=== PATIENT | female | born 1985 | race Caucasian/White ===

== ENCOUNTER 2020-07-24 13:19 | Inpatient (IN) ==
[2020-07-24 15:55] LABS: Basophils # 0.1 K/mcL (0.0-0.2); Basophils % 0.6 %; Eosinophils # 0.1 K/mcL (0.0-0.6); Eosinophils % 1.6 %; Hematocrit 44.5 % (35.3-44.9); Hemoglobin 14.9 g/dL (11.5-15.4); Immature Granulocytes % 0.6 % (0-4); Lymphocytes # 1.9 K/mcL (0.6-4.6); Lymphocytes % 22.7 %; Mean Corpuscular HGB Conc 33.5 g/dL (31.6-35.5); Mean Corpuscular Volume 86.6 fL (83.0-100.0); Mean Platelet Volume 9.4 fL (9.4-12.4); Monocytes # 0.6 K/mcL (0.0-1.3); Monocytes % 7.6 %; Neutrophils # 5.5 K/mcL (1.6-8.9); Platelet Count 302 K/mcL (140-400); Red Blood Count 5.14 M/mcL (3.82-4.97); Red Cell Distribution Width 11.9 % (11.5-14.5); Segmented Neutrophils % 66.9 %; White Blood Count 8.3 K/mcL (4.3-11.1)
[2020-07-24 15:59] LABS: Bilirubin,Urine Negative (Negative); Blood,Urine Large (Negative); Clarity,Urine Clear (Clear); Color,Urine Yellow (Yellow); Glucose,Urine (UA) Normal (Normal); Ketones,Urine Negative (Negative); Leukocyte Esterase,Urine Trace (Negative); Nitrite,Urine Negative (Negative); PH,Urine 6.5 pH Units (5.0-8.0); Protein,Urine 50 mg/dL (Neg-Trace); Specific Gravity,Urine 1.024 (1.010-1.025)
[2020-07-24 16:02] LABS: Amphetamine Screen,Urine Negative ng/mL (Cutoff=1000); Barbiturate Screen,Urine Negative ng/mL (Cutoff=200); Benzodiazepines Screen,Urine Positive ng/mL (Cutoff=200); Cannabinoid Screen,Urine Positive ng/mL (Cutoff = 50); Cocaine Screen,Urine Negative ng/mL (Cutoff= 300); Opiate Screen,Urine Negative ng/mL (Cutoff=300); Phencyclidine Screen,Urine Negative ng/mL (Cutoff=25)
[2020-07-24 16:08] LABS: Acetaminophen < 10 mcg/mL (10-20); BUN/Creatinine Ratio 15 (6-26); Blood Urea Nitrogen 10 mg/dL (6-20); Calcium 9.4 mg/dL (8.6-10.3); Carbon Dioxide 24 mEq/L (23-29); Chloride 108 mEq/L (98-107); Chol/HDL Ratio 2.9 (0-4.9); Cholesterol 138 mg/dL (< 200); Ethanol < 10 mg/dL (Less than 10); Glucose 90 mg/dL (70-105); HDL Cholesterol 47 mg/dL (40-59); LDL Cholesterol,Calculated 78 mg/dL (< 100); Osmolality,Calculated 287 (280-300); Potassium 3.6 mEq/L (3.5-5.1); Salicylate < 2.5 mg/dL (15.0-30.0); Sodium 139 mEq/L (136-145); Triglycerides 66 mg/dL (< 150); eGFR For African Americans > 60 (> 60); eGFR For Non-African Americans > 60 (> 60)
[2020-07-24 16:40] LABS: Estimated Average Glucose 108 mg/dl; Hemoglobin A1C 5.4 %
[2020-07-24] MEDS ORDERED: Haloperidol Lactate 5 MG/ML VIAL IM PRN (21:03)
[2020-07-24] MEDS ORDERED: haloperidoL 5 MG TABLET PO PRN (21:03)
[2020-07-24] MEDS ORDERED: *HR* LORazepam 2 MG/ML VIAL IM PRN (21:03)
[2020-07-24] MEDS ORDERED: Acetaminophen 325 MG TABLET PO PRN (21:03)
[2020-07-24] MEDS ORDERED: Mag Hydrox/Al Hydrox/Simeth 30 ML UDC PO PRN (21:03)
[2020-07-24] MEDS ORDERED: *HR* LORazepam 1 MG TABLET PO PRN (21:03)
[2020-07-24] MEDS ORDERED: MOM Conc 10 ML UD.LIQ PO PRN (21:03)
[2020-07-25] MEDS: Nicotine 21 MG PATCH.TD24 TD SCH (09:12)
[2020-07-25] MEDS: ARIPiprazole 5 MG TABLET PO SCH ×2 (10:30→21:16)
[2020-07-26] MEDS ORDERED: ARIPiprazole 10 MG TABLET PO SCH ×2 (09:00→21:00)
[2020-07-26] MEDS: Nicotine 21 MG PATCH.TD24 TD SCH (09:27)
[2020-07-26] MEDS ORDERED: ARIPiprazole 5 MG TABLET PO STA (11:07)
[2020-07-27] MEDS ORDERED: ARIPiprazole 10 MG TABLET PO SCH (09:00)
[2020-07-27] MEDS: Nicotine 21 MG PATCH.TD24 TD SCH (09:14)
[2020-07-27] MEDS: ARIPiprazole 10 MG TABLET PO SCH (21:15)
[2020-07-27] MEDS: traZODone 50 MG TABLET PO PRN (21:16)
[2020-07-27] MEDS: hydrOXYzine pamoate 25 MG CAPSULE PO PRN (21:17)
[2020-07-28] MEDS ORDERED: ARIPiprazole 400 MG SUSER.SYR IM ONE (09:00)
[2020-07-28] MEDS: Nicotine 21 MG PATCH.TD24 TD SCH (09:39)
[2020-07-28] MEDS: hydrOXYzine pamoate 25 MG CAPSULE PO PRN (21:27)
[2020-07-28] MEDS: ARIPiprazole 10 MG TABLET PO SCH (21:27)
[2020-07-28] MEDS: traZODone 50 MG TABLET PO PRN (21:27)
[2020-07-29] MEDS: Nicotine 21 MG PATCH.TD24 TD SCH (08:29)
[2020-07-29] MEDS: hydrOXYzine pamoate 25 MG CAPSULE PO PRN (20:42)
[2020-07-29] MEDS: ARIPiprazole 10 MG TABLET PO SCH (20:42)
[2020-07-30] MEDS: Nicotine 21 MG PATCH.TD24 TD SCH (10:11)
[2020-07-30] MEDS: ARIPiprazole 10 MG TABLET PO SCH (21:12)
[2020-07-31] MEDS: Nicotine 21 MG PATCH.TD24 TD SCH (11:27)
[2020-07-31] MEDS ORDERED: ARIPiprazole 400 MG SUSER.SYR IM SCH (15:00)
[2020-07-31] MEDS: ARIPiprazole 10 MG TABLET PO SCH (21:10)
[2020-07-31] MEDS: ARIPiprazole 5 MG TABLET PO SCH (21:10)
[2020-08-01] MEDS: Nicotine 21 MG PATCH.TD24 TD SCH (08:56)
[2020-08-01] MEDS: ARIPiprazole 10 MG TABLET PO SCH (20:52)
[2020-08-01] MEDS: ARIPiprazole 5 MG TABLET PO SCH (20:52)
[2020-08-02] MEDS: Nicotine 21 MG PATCH.TD24 TD SCH (08:51)
[2020-08-02 09:45] VITALS: BP 110/65
== END 2020-08-02 12:35 | disposition home or self-care (01) | DRG 750 ==
LOC: EMEROOARM 13:19 → 1ANU 20:31
PROVIDERS: ADMIT Psychiatry & Neurology Psychiatry; ATTEND Psychiatry & Neurology Psychiatry

== ENCOUNTER 2020-08-14 17:05 | Inpatient (IN) ==
[2020-08-14 17:48] LABS: Bacteria,Urine Few per hpf (None-Few); Bilirubin,Urine Negative (Negative); Blood,Urine Negative (Negative); Clarity,Urine Turbid (Clear); Color,Urine Yellow (Yellow); Glucose,Urine (UA) Normal (Normal); Ketones,Urine Trace mg/dL (Negative); Leukocyte Esterase,Urine Moderate (Negative); Mucus,Urine Many per lpf (None-Few); Nitrite,Urine Negative (Negative); PH,Urine 6.5 pH Units (5.0-8.0); Protein,Urine 70 mg/dL (Neg-Trace); Specific Gravity,Urine > 1.030 (1.010-1.025); Squamous Epithelial Cell,Urine Many per hpf (None-Few); WBC,Urine 15-30 per hpf (0-3)
[2020-08-14 18:10] LABS: Amphetamine Screen,Urine Negative ng/mL (Cutoff=1000); Barbiturate Screen,Urine Negative ng/mL (Cutoff=200); Benzodiazepines Screen,Urine Negative ng/mL (Cutoff=200); Cannabinoid Screen,Urine Positive ng/mL (Cutoff = 50); Cocaine Screen,Urine Negative ng/mL (Cutoff= 300); Opiate Screen,Urine Negative ng/mL (Cutoff=300); Phencyclidine Screen,Urine Negative ng/mL (Cutoff=25)
[2020-08-14 18:15] LABS: Basophils # 0.1 K/mcL (0.0-0.2); Basophils % 0.7 %; Eosinophils # 0.1 K/mcL (0.0-0.6); Eosinophils % 0.9 %; Hematocrit 46.2 % (35.3-44.9); Immature Granulocytes % 0.5 % (0-4); Lymphocytes % 18.8 %; Mean Corpuscular HGB Conc 34.6 g/dL (31.6-35.5); Mean Corpuscular Hemoglobin 29.7 pg (28.0-33.3); Mean Corpuscular Volume 85.9 fL (83.0-100.0); Mean Platelet Volume 9.7 fL (9.4-12.4); Monocytes # 0.8 K/mcL (0.0-1.3); Monocytes % 8.1 %; Neutrophils # 7.4 K/mcL (1.6-8.9); Platelet Count 343 K/mcL (140-400); Red Blood Count 5.38 M/mcL (3.82-4.97); Red Cell Distribution Width 12.4 % (11.5-14.5); White Blood Count 10.4 K/mcL (4.3-11.1)
[2020-08-14 18:29] LABS: Estimated Average Glucose 111 mg/dl; Hemoglobin A1C 5.5 %
[2020-08-14 18:32] LABS: Acetaminophen < 10 mcg/mL (10-20); BUN/Creatinine Ratio 11 (6-26); Blood Urea Nitrogen 7 mg/dL (6-20); Calcium 9.4 mg/dL (8.6-10.3); Carbon Dioxide 21 mEq/L (23-29); Chloride 107 mEq/L (98-107); Chol/HDL Ratio 3.1 (0-4.9); Cholesterol 170 mg/dL (< 200); Ethanol < 10 mg/dL (Less than 10); Glucose 114 mg/dL (70-105); HDL Cholesterol 54 mg/dL (40-59); LDL Cholesterol,Calculated 102 mg/dL (< 100); Osmolality,Calculated 287 (280-300); Potassium 3.5 mEq/L (3.5-5.1); Salicylate < 2.5 mg/dL (15.0-30.0); Sodium 139 mEq/L (136-145); Triglycerides 72 mg/dL (< 150); eGFR For African Americans > 60 (> 60); eGFR For Non-African Americans > 60 (> 60)
[2020-08-14] MEDS ORDERED: cephALEXin 500 MG CAPSULE PO STA (18:36)
[2020-08-14 21:56] LABS: Adenovirus Not Detected (Not Detect); Bordetella Pertussis Not Detected (Not Detect); Chlamydophila pneumoniae Not Detected (Not Detect); Coronavirus 229E Not Detected (Not Detect); Coronavirus HKU1 Not Detected (Not Detect); Coronavirus NL63 Not Detected (Not Detect); Coronavirus OC43 Not Detected (Not Detect); Human Metapneumovirus Not Detected (Not Detect); Human Rhinovirus/Enterovirus Not Detected (Not Detect); Influenza A Subtype 2009 H1 Not Detected (Not Detect); Influenza B Not Detected (Not Detect); Mycoplasma pneumoniae Not Detected (Not Detect); Parainfluenza Virus 1 Not Detected (Not Detect); Parainfluenza Virus 2 Not Detected (Not Detect); Parainfluenza Virus 3 Not Detected (Not Detect); Parainfluenza Virus 4 Not Detected (Not Detect); Respiratory Syncytial Virus Not Detected (Not Detect); SARS-CoV-2 Not Detected (Not Detect)
[2020-08-14] MEDS ORDERED: haloperidoL 5 MG TABLET PO PRN (22:01)
[2020-08-14] MEDS ORDERED: *HR* LORazepam 2 MG/ML VIAL IM PRN (22:01)
[2020-08-14] MEDS ORDERED: Haloperidol Lactate 5 MG/ML VIAL IM PRN (22:01)
[2020-08-14] MEDS ORDERED: Mag Hydrox/Al Hydrox/Simeth 30 ML UDC PO PRN (22:01)
[2020-08-14] MEDS ORDERED: MOM Conc 10 ML UD.LIQ PO PRN (22:01)
[2020-08-14] MEDS ORDERED: *HR* LORazepam 1 MG TABLET PO PRN (22:01)
[2020-08-14] MEDS: ARIPiprazole 10 MG TABLET PO SCH (23:20)
[2020-08-14] MEDS: QUEtiapine Fumarate 100 MG TABLET PO PRN (23:20)
[2020-08-15] MEDS: Nicotine 21 MG PATCH.TD24 TD SCH (10:37)
[2020-08-15] MEDS: cephALEXin 500 MG CAPSULE PO SCH ×2 (11:17→20:47)
[2020-08-15] MEDS: hydrOXYzine pamoate 25 MG CAPSULE PO PRN (19:29)
[2020-08-15] MEDS: QUEtiapine Fumarate 100 MG TABLET PO PRN (20:47)
[2020-08-15] MEDS: ARIPiprazole 10 MG TABLET PO SCH (20:47)
[2020-08-16] MEDS: cephALEXin 500 MG CAPSULE PO SCH ×2 (09:41→21:48)
[2020-08-16] MEDS: Nicotine 21 MG PATCH.TD24 TD SCH (09:43)
[2020-08-16] MEDS: Ibuprofen 400 MG TABLET PO PRN (13:43)
[2020-08-16] MEDS: ARIPiprazole 400 MG SUSER.SYR IM SCH (15:20)
[2020-08-16] MEDS: QUEtiapine Fumarate 100 MG TABLET PO PRN (21:48)
[2020-08-16] MEDS: ARIPiprazole 10 MG TABLET PO SCH (21:48)
[2020-08-17] MEDS: cephALEXin 500 MG CAPSULE PO SCH ×2 (10:09→20:13)
[2020-08-17] MEDS: Nicotine 21 MG PATCH.TD24 TD SCH (10:09)
[2020-08-17] MEDS: QUEtiapine Fumarate 100 MG TABLET PO PRN (20:13)
[2020-08-17] MEDS: hydrOXYzine pamoate 25 MG CAPSULE PO PRN (20:13)
[2020-08-17] MEDS: ARIPiprazole 10 MG TABLET PO SCH (20:13)
[2020-08-18] MEDS ORDERED: ARIPiprazole 400 MG SUSER.SYR IM SCH (09:00)
[2020-08-18] MEDS: Nicotine 21 MG PATCH.TD24 TD SCH (09:52)
[2020-08-18] MEDS: cephALEXin 500 MG CAPSULE PO SCH ×2 (09:52→20:13)
[2020-08-18] MEDS: ARIPiprazole 10 MG TABLET PO SCH (20:13)
[2020-08-19] MEDS: cephALEXin 500 MG CAPSULE PO SCH ×2 (09:37→21:02)
[2020-08-19] MEDS: Nicotine 21 MG PATCH.TD24 TD SCH (09:38)
[2020-08-19] MEDS: ARIPiprazole 10 MG TABLET PO SCH (17:39)
[2020-08-19] MEDS: QUEtiapine Fumarate 100 MG TABLET PO SCH (21:02)
[2020-08-20] MEDS: Nicotine 21 MG PATCH.TD24 TD SCH (09:06)
[2020-08-20 11:12] LABS: Bilirubin,Urine Negative (Negative); Blood,Urine Small (Negative); Clarity,Urine Turbid (Clear); Color,Urine Yellow (Yellow); Glucose,Urine (UA) Normal (Normal); Ketones,Urine 60 mg/dL (Negative); Leukocyte Esterase,Urine Large (Negative); Mucus,Urine Many per lpf (None-Few); Nitrite,Urine Negative (Negative); Protein,Urine 100 mg/dL (Neg-Trace); RBC,Urine 30-50 per hpf (0-3); Specific Gravity,Urine > 1.030 (1.010-1.025); Squamous Epithelial Cell,Urine Many per hpf (None-Few); WBC,Urine 30-50 per hpf (0-3)
[2020-08-20] MEDS: ARIPiprazole 10 MG TABLET PO SCH (17:58)
[2020-08-20] MEDS: QUEtiapine Fumarate 100 MG TABLET PO SCH (21:20)
[2020-08-20] MEDS: hydrOXYzine pamoate 25 MG CAPSULE PO PRN (21:20)
[2020-08-21 07:07] LABS: Basophils # 0.1 K/mcL (0.0-0.2); Basophils % 0.7 %; Eosinophils # 0.2 K/mcL (0.0-0.6); Eosinophils % 3.5 %; Hematocrit 45.8 % (35.3-44.9); Hemoglobin 15.5 g/dL (11.5-15.4); Immature Granulocytes % 0.6 % (0-4); Lymphocytes % 29.6 %; Mean Corpuscular HGB Conc 33.8 g/dL (31.6-35.5); Mean Corpuscular Volume 85.8 fL (83.0-100.0); Mean Platelet Volume 9.5 fL (9.4-12.4); Monocytes # 0.6 K/mcL (0.0-1.3); Monocytes % 8.5 %; Neutrophils # 3.9 K/mcL (1.6-8.9); Platelet Count 292 K/mcL (140-400); Red Blood Count 5.34 M/mcL (3.82-4.97); Red Cell Distribution Width 11.8 % (11.5-14.5); Segmented Neutrophils % 57.1 %; White Blood Count 6.8 K/mcL (4.3-11.1)
[2020-08-21 07:29] LABS: Alanine Aminotransferase 26 Units/L (7-52); Albumin/Globulin Ratio 1.1 (1.1-2.2); Alkaline Phosphatase 99 Units/L (34-104); Aspartate Amino Transferase 24 Units/L (13-39); BUN/Creatinine Ratio 16 (6-26); Bilirubin,Total 0.8 mg/dL (0.3-1.0); Blood Urea Nitrogen 11 mg/dL (6-20); Calcium 9.3 mg/dL (8.6-10.3); Carbon Dioxide 23 mEq/L (23-29); Chloride 105 mEq/L (98-107); Globulin 3.5 g/dL (2.4-3.5); Glucose 93 mg/dL (70-105); Osmolality,Calculated 283 (280-300); Potassium 3.6 mEq/L (3.5-5.1); Sodium 137 mEq/L (136-145); Total Protein 7.5 g/dL (6.4-8.9); eGFR For African Americans > 60 (> 60); eGFR For Non-African Americans > 60 (> 60)
[2020-08-21 07:42] LABS: Thyroid Stimulating Hormone 0.891 mcIU/mL (0.340-5.600)
[2020-08-21] MEDS: Nicotine 21 MG PATCH.TD24 TD SCH (10:29)
[2020-08-21] MEDS: ARIPiprazole 10 MG TABLET PO SCH (18:18)
[2020-08-21] MEDS: QUEtiapine Fumarate 100 MG TABLET PO SCH (21:26)
[2020-08-21] MEDS: haloperidoL 1 MG TABLET PO SCH (21:26)
[2020-08-22] MEDS: haloperidoL 1 MG TABLET PO SCH ×2 (09:06→20:37)
[2020-08-22] MEDS: Nicotine 21 MG PATCH.TD24 TD SCH (09:06)
[2020-08-22] MEDS: ARIPiprazole 10 MG TABLET PO SCH (17:33)
[2020-08-22] MEDS: QUEtiapine Fumarate 100 MG TABLET PO SCH (20:37)
[2020-08-22] MEDS: hydrOXYzine pamoate 25 MG CAPSULE PO PRN (20:37)
[2020-08-23] MEDS: Nicotine 21 MG PATCH.TD24 TD SCH (08:24)
[2020-08-23] MEDS: haloperidoL 1 MG TABLET PO SCH (08:25)
[2020-08-23] MEDS: ARIPiprazole 10 MG TABLET PO SCH (18:48)
[2020-08-23] MEDS: QUEtiapine Fumarate 100 MG TABLET PO SCH (20:49)
[2020-08-23] MEDS: hydrOXYzine pamoate 25 MG CAPSULE PO PRN (20:49)
[2020-08-23] MEDS: haloperidoL 5 MG TABLET PO SCH (20:49)
[2020-08-24] MEDS: haloperidoL 5 MG TABLET PO SCH ×2 (09:18→20:40)
[2020-08-24] MEDS: Nicotine 21 MG PATCH.TD24 TD SCH (09:18)
[2020-08-24] MEDS: Ibuprofen 400 MG TABLET PO PRN (09:21)
[2020-08-24] MEDS: ARIPiprazole 10 MG TABLET PO SCH (17:54)
[2020-08-24] MEDS: QUEtiapine Fumarate 100 MG TABLET PO SCH (20:40)
[2020-08-25] MEDS: Nicotine 21 MG PATCH.TD24 TD SCH (08:31)
[2020-08-25] MEDS: haloperidoL 5 MG TABLET PO SCH ×2 (08:31→20:21)
[2020-08-25] MEDS: ARIPiprazole 10 MG TABLET PO SCH (17:55)
[2020-08-25] MEDS: QUEtiapine Fumarate 100 MG TABLET PO SCH (20:20)
[2020-08-25] MEDS: Ibuprofen 400 MG TABLET PO PRN (20:47)
[2020-08-26] MEDS: Nicotine 21 MG PATCH.TD24 TD SCH (08:51)
[2020-08-26] MEDS: haloperidoL 5 MG TABLET PO SCH ×2 (08:51→20:53)
[2020-08-26] MEDS: ARIPiprazole 10 MG TABLET PO SCH (17:22)
[2020-08-26] MEDS: QUEtiapine Fumarate 100 MG TABLET PO SCH (20:53)
[2020-08-26] MEDS: hydrOXYzine pamoate 25 MG CAPSULE PO PRN (20:54)
[2020-08-27] MEDS: Nicotine 21 MG PATCH.TD24 TD SCH (09:20)
[2020-08-27] MEDS: haloperidoL 5 MG TABLET PO SCH ×2 (09:21→20:34)
[2020-08-27] MEDS: ARIPiprazole 10 MG TABLET PO SCH (17:33)
[2020-08-27] MEDS: QUEtiapine Fumarate 100 MG TABLET PO SCH (20:34)
[2020-08-27 21:35] LABS: Basophils # 0.1 K/mcL (0.0-0.2); Basophils % 0.8 %; Eosinophils # 0.2 K/mcL (0.0-0.6); Eosinophils % 2.9 %; Hematocrit 44.5 % (35.3-44.9); Hemoglobin 15.7 g/dL (11.5-15.4); Immature Granulocytes % 0.3 % (0-4); Lymphocytes # 1.6 K/mcL (0.6-4.6); Lymphocytes % 24.6 %; Mean Corpuscular HGB Conc 35.3 g/dL (31.6-35.5); Mean Corpuscular Hemoglobin 29.6 pg (28.0-33.3); Mean Corpuscular Volume 83.8 fL (83.0-100.0); Mean Platelet Volume 9.7 fL (9.4-12.4); Monocytes # 0.6 K/mcL (0.0-1.3); Monocytes % 8.3 %; Neutrophils # 4.2 K/mcL (1.6-8.9); Platelet Count 297 K/mcL (140-400); Red Blood Count 5.31 M/mcL (3.82-4.97); Red Cell Distribution Width 11.4 % (11.5-14.5); Segmented Neutrophils % 63.1 %; White Blood Count 6.7 K/mcL (4.3-11.1)
[2020-08-27 21:55] LABS: Alanine Aminotransferase 25 Units/L (7-52); Albumin/Globulin Ratio 1.2 (1.1-2.2); Alkaline Phosphatase 90 Units/L (34-104); Aspartate Amino Transferase 23 Units/L (13-39); BUN/Creatinine Ratio 13 (6-26); Bilirubin,Total 0.6 mg/dL (0.3-1.0); Blood Urea Nitrogen 10 mg/dL (6-20); Calcium 9.2 mg/dL (8.6-10.3); Carbon Dioxide 26 mEq/L (23-29); Chloride 103 mEq/L (98-107); Globulin 3.4 g/dL (2.4-3.5); Glucose 103 mg/dL (70-105); Osmolality,Calculated 285 (280-300); Potassium 3.4 mEq/L (3.5-5.1); Sodium 138 mEq/L (136-145); Total Protein 7.4 g/dL (6.4-8.9); eGFR For African Americans > 60 (> 60); eGFR For Non-African Americans > 60 (> 60)
[2020-08-28] MEDS: haloperidoL 5 MG TABLET PO SCH ×2 (09:00→20:39)
[2020-08-28] MEDS: Nicotine 21 MG PATCH.TD24 TD SCH (09:01)
[2020-08-28] MEDS: ARIPiprazole 10 MG TABLET PO SCH (18:17)
[2020-08-28] MEDS: QUEtiapine Fumarate 100 MG TABLET PO SCH (20:39)
[2020-08-28] MEDS: hydrOXYzine pamoate 25 MG CAPSULE PO PRN (20:40)
[2020-08-29] MEDS: Nicotine 21 MG PATCH.TD24 TD SCH (08:46)
[2020-08-29] MEDS: haloperidoL 5 MG TABLET PO SCH ×2 (08:46→21:37)
[2020-08-29] MEDS: ARIPiprazole 10 MG TABLET PO SCH (17:46)
[2020-08-29] MEDS: hydrOXYzine pamoate 25 MG CAPSULE PO PRN (21:38)
[2020-08-29] MEDS: QUEtiapine Fumarate 100 MG TABLET PO SCH (21:38)
[2020-08-30] MEDS: Nicotine 21 MG PATCH.TD24 TD SCH (09:13)
[2020-08-30] MEDS: haloperidoL 5 MG TABLET PO SCH ×2 (09:14→20:28)
[2020-08-30] MEDS: QUEtiapine Fumarate 100 MG TABLET PO PRN (20:28)
[2020-08-30] MEDS: hydrOXYzine pamoate 25 MG CAPSULE PO PRN (20:28)
[2020-08-31] MEDS: Nicotine 21 MG PATCH.TD24 TD SCH (09:51)
[2020-08-31] MEDS: haloperidoL 5 MG TABLET PO SCH ×2 (09:51→20:44)
[2020-08-31] MEDS: hydrOXYzine pamoate 25 MG CAPSULE PO PRN (20:45)
[2020-09-01] MEDS: haloperidoL 5 MG TABLET PO SCH ×2 (09:24→20:16)
[2020-09-01] MEDS: Nicotine 21 MG PATCH.TD24 TD SCH (09:25)
[2020-09-01] MEDS: hydrOXYzine pamoate 25 MG CAPSULE PO PRN (20:16)
[2020-09-02] MEDS: Nicotine 21 MG PATCH.TD24 TD SCH (08:29)
[2020-09-02] MEDS: haloperidoL 5 MG TABLET PO SCH ×2 (08:30→20:44)
[2020-09-02] MEDS: hydrOXYzine pamoate 25 MG CAPSULE PO PRN (20:44)
[2020-09-03] MEDS: Nicotine 21 MG PATCH.TD24 TD SCH (09:01)
[2020-09-03] MEDS: haloperidoL 5 MG TABLET PO SCH ×2 (09:01→20:18)
[2020-09-03] MEDS: hydrOXYzine pamoate 25 MG CAPSULE PO PRN (20:20)
[2020-09-04] MEDS: haloperidoL 5 MG TABLET PO SCH ×2 (08:21→20:05)
[2020-09-04] MEDS: Nicotine 21 MG PATCH.TD24 TD SCH (08:22)
[2020-09-04] MEDS: hydrOXYzine pamoate 25 MG CAPSULE PO PRN (20:06)
[2020-09-05] MEDS: Nicotine 21 MG PATCH.TD24 TD SCH (08:57)
[2020-09-05] MEDS: haloperidoL 5 MG TABLET PO SCH ×2 (08:57→20:04)
[2020-09-05] MEDS: hydrOXYzine pamoate 25 MG CAPSULE PO PRN (20:04)
[2020-09-06] MEDS: haloperidoL 5 MG TABLET PO SCH ×2 (08:34→20:48)
[2020-09-06] MEDS: Nicotine 21 MG PATCH.TD24 TD SCH (08:35)
[2020-09-06] MEDS: hydrOXYzine pamoate 25 MG CAPSULE PO PRN (20:48)
[2020-09-07] MEDS: haloperidoL 5 MG TABLET PO SCH ×2 (08:41→20:12)
[2020-09-07] MEDS: Nicotine 21 MG PATCH.TD24 TD SCH (08:42)
[2020-09-07] MEDS: hydrOXYzine pamoate 25 MG CAPSULE PO PRN (20:11)
[2020-09-08] MEDS: Nicotine 21 MG PATCH.TD24 TD SCH (08:46)
[2020-09-08] MEDS: haloperidoL 5 MG TABLET PO SCH ×2 (08:47→20:19)
[2020-09-08] MEDS: hydrOXYzine pamoate 25 MG CAPSULE PO PRN (20:19)
[2020-09-09] MEDS: Nicotine 21 MG PATCH.TD24 TD SCH (08:58)
[2020-09-09] MEDS: haloperidoL 5 MG TABLET PO SCH ×2 (09:00→20:05)
[2020-09-10] MEDS: haloperidoL 5 MG TABLET PO SCH ×2 (09:25→20:09)
[2020-09-10] MEDS: Nicotine 21 MG PATCH.TD24 TD SCH (09:25)
[2020-09-10] MEDS: hydrOXYzine pamoate 25 MG CAPSULE PO PRN (20:09)
[2020-09-11] MEDS: haloperidoL 5 MG TABLET PO SCH ×2 (09:05→20:29)
[2020-09-11] MEDS: Nicotine 21 MG PATCH.TD24 TD SCH (09:06)
[2020-09-11] MEDS: hydrOXYzine pamoate 25 MG CAPSULE PO PRN (20:30)
[2020-09-12] MEDS: Nicotine 21 MG PATCH.TD24 TD SCH (09:18)
[2020-09-12] MEDS: haloperidoL 5 MG TABLET PO SCH ×2 (09:18→20:16)
[2020-09-12] MEDS: hydrOXYzine pamoate 25 MG CAPSULE PO PRN (20:16)
[2020-09-13] MEDS: Nicotine 21 MG PATCH.TD24 TD SCH (08:48)
[2020-09-13] MEDS: haloperidoL 5 MG TABLET PO SCH ×2 (08:49→20:03)
[2020-09-13] MEDS: ARIPiprazole 400 MG SUSER.SYR IM SCH (15:25)
[2020-09-13] MEDS: hydrOXYzine pamoate 25 MG CAPSULE PO PRN (20:03)
[2020-09-14] MEDS: haloperidoL 5 MG TABLET PO SCH (09:15)
[2020-09-14] MEDS: Nicotine 21 MG PATCH.TD24 TD SCH (09:16)
[2020-09-14 09:54] VITALS: BP 119/79
== END 2020-09-14 13:25 | disposition home or self-care (01) | DRG 750 ==
LOC: EMEROOARM 17:05 → SUATTDRO 22:00 → 1ANU 22:00
PROVIDERS: ADMIT Psychiatry & Neurology Forensic Psychiatry; ATTEND Psychiatry & Neurology Psychiatry

== ENCOUNTER 2020-12-27 21:43 | Inpatient (IN) ==
[2020-12-27 22:25] LABS: Basophils # 0.1 K/mcL (0.0-0.2); Basophils % 0.6 %; Eosinophils # 0.2 K/mcL (0.0-0.6); Eosinophils % 1.9 %; Hematocrit 43.9 % (35.3-44.9); Hemoglobin 14.9 g/dL (11.5-15.4); Immature Granulocytes % 0.8 % (0-4); Lymphocytes # 2.4 K/mcL (0.6-4.6); Lymphocytes % 22.5 %; Mean Corpuscular HGB Conc 33.9 g/dL (31.6-35.5); Mean Corpuscular Hemoglobin 29.8 pg (28.0-33.3); Mean Corpuscular Volume 87.8 fL (83.0-100.0); Mean Platelet Volume 9.4 fL (9.4-12.4); Monocytes # 0.8 K/mcL (0.0-1.3); Monocytes % 7.4 %; Neutrophils # 7.1 K/mcL (1.6-8.9); Platelet Count 331 K/mcL (140-400); Red Cell Distribution Width 12.2 % (11.5-14.5); Segmented Neutrophils % 66.8 %; White Blood Count 10.6 K/mcL (4.3-11.1)
[2020-12-27 22:27] LABS: Bacteria,Urine Few per hpf (None-Few); Bilirubin,Urine Negative (Negative); Blood,Urine Negative (Negative); Clarity,Urine Turbid (Clear); Color,Urine Yellow (Yellow); Glucose,Urine (UA) Normal (Normal); Ketones,Urine Negative (Negative); Leukocyte Esterase,Urine Negative (Negative); Mucus,Urine Many per lpf (None-Few); Nitrite,Urine Negative (Negative); Protein,Urine 50 mg/dL (Neg-Trace); Specific Gravity,Urine > 1.030 (1.010-1.025); Squamous Epithelial Cell,Urine Many per hpf (None-Few); Urobilinogen,Urine Normal (Normal)
[2020-12-27 22:40] LABS: Amphetamine Screen,Urine Negative ng/mL (Cutoff=1000); Barbiturate Screen,Urine Negative ng/mL (Cutoff=200); Benzodiazepines Screen,Urine Negative ng/mL (Cutoff=200); Cannabinoid Screen,Urine Positive ng/mL (Cutoff = 50); Cocaine Screen,Urine Negative ng/mL (Cutoff= 300); Opiate Screen,Urine Negative ng/mL (Cutoff=300); Phencyclidine Screen,Urine Negative ng/mL (Cutoff=25)
[2020-12-27 22:44] LABS: Acetaminophen < 10 mcg/mL (10-20); BUN/Creatinine Ratio 13 (6-26); Blood Urea Nitrogen 9 mg/dL (6-20); Calcium 9.6 mg/dL (8.6-10.3); Carbon Dioxide 24 mEq/L (23-29); Chloride 105 mEq/L (98-107); Ethanol < 10 mg/dL (Less than 10); Glucose 128 mg/dL (70-105); Osmolality,Calculated 284 (280-300); Potassium 3.9 mEq/L (3.5-5.1); Salicylate < 2.5 mg/dL (15.0-30.0); Sodium 137 mEq/L (136-145); eGFR For African Americans > 60 (> 60); eGFR For Non-African Americans > 60 (> 60)
[2020-12-28] MEDS ORDERED: haloperidoL 5 MG TABLET PO PRN (01:51)
[2020-12-28] MEDS ORDERED: *HR* LORazepam 1 MG TABLET PO PRN (01:51)
[2020-12-28] MEDS ORDERED: Haloperidol Lactate 5 MG/ML VIAL IM PRN (01:51)
[2020-12-28] MEDS ORDERED: traZODone 50 MG TABLET PO PRN (01:51)
[2020-12-28] MEDS ORDERED: Acetaminophen 325 MG TABLET PO PRN (01:51)
[2020-12-28] MEDS ORDERED: *HR* LORazepam 2 MG/ML VIAL IM PRN (01:51)
[2021-01-01] MEDS ORDERED: PALIPERIDONE PALMITATE 234 MG/1.5 ML SYRINGE IM SCH (09:15)
[2021-01-01] MEDS: traZODone 50 MG TABLET PO SCH (20:41)
[2021-01-02] MEDS: traZODone 50 MG TABLET PO SCH (20:52)
[2021-01-03] MEDS: traZODone 50 MG TABLET PO SCH (21:27)
[2021-01-04] MEDS: hydrOXYzine pamoate 25 MG CAPSULE PO PRN ×2 (02:08→21:34)
[2021-01-04] MEDS: traZODone 50 MG TABLET PO SCH (21:35)
[2021-01-05] MEDS ORDERED: PALIPERIDONE PALMITATE 156 MG/ML SYRINGE IM SCH (09:00)
[2021-01-05] MEDS: traZODone 50 MG TABLET PO SCH (21:15)
[2021-01-06] MEDS: traZODone 50 MG TABLET PO SCH (20:52)
[2021-01-07] MEDS: traZODone 50 MG TABLET PO SCH (21:06)
[2021-01-08] MEDS: traZODone 50 MG TABLET PO SCH (20:47)
[2021-01-09] MEDS: traZODone 50 MG TABLET PO SCH (21:16)
[2021-01-10] MEDS: traZODone 50 MG TABLET PO SCH (20:38)
[2021-01-11 09:44] VITALS: BP 90/55
== END 2021-01-11 12:30 | disposition other institution (70) | DRG 750 ==
LOC: EMEROOARM 21:43 → 1ANU 12-28 01:42
PROVIDERS: ADMIT Psychiatry & Neurology Psychiatry; ATTEND Psychiatry & Neurology Psychiatry